=== PATIENT | female | born 1990 | race Caucasian/White ===

== ENCOUNTER 2020-02-14 04:50 | Inpatient (IN) | payer OTHER ==
[~2020-02-14] VITALS: Ht 165.1 cm; Wt 108.6 kg
[2020-02-14] MEDS ORDERED: LACTATED RINGERS 1,000 ML IV SCH (05:21)
[2020-02-14] MEDS: D5%-LACTATED RINGERS 1,000 ML IV SCH (05:21)
[2020-02-14] MEDS ORDERED: OXYTOCIN 30U/ 0.9% NaCL 500ML 500 ML IV ONE (05:21)
[2020-02-14] MEDS ORDERED: OXYTOCIN 30U/ 0.9% NaCL 500ML 500 ML IV PRN ×2 (05:21→11:23)
[2020-02-14] MEDS ORDERED: TERBUTALINE 1 MG/ML, 1ML SQ PRN (05:30)
[2020-02-14] MEDS ORDERED: ONDANSETRON 2MG/ML, 2ML IVPush PRN (05:30)
[2020-02-14] MEDS ORDERED: CALCIUM CARBONATE 500 MG TAB.CHEW PO PRN (05:30)
[2020-02-14] MEDS ORDERED: TERBUTALINE 1 MG/ML, 1ML IVPush PRN (05:30)
[2020-02-14] MEDS ORDERED: FENTANYL PF 100 MCG/2ML IV PRN (05:30)
[2020-02-14] MEDS ORDERED: METOCLOPRAMIDE 5 MG/ML, 2ML IVPush PRN (05:30)
[2020-02-14] MEDS ORDERED: SODIUM CITRATE/CITRIC ACID 30 ML UDC PO PRN (05:30)
[2020-02-14] MEDS ORDERED: NEWBORN KIT ONE (05:36)
[2020-02-14 05:44] VITALS: BP 128/75
[2020-02-14] MEDS ORDERED: MISOPROSTOL 25 MCG TABLET ONE (05:59)
[2020-02-14] MEDS ORDERED: LIDOCAINE 1%, 20ML ONE (06:17)
[2020-02-14] MEDS ORDERED: MISOPROSTOL 200 MCG TABLET ONE (06:17)
[2020-02-14] MEDS ORDERED: OXYTOCIN 30U/ 0.9% NaCL 500ML 500 ML ONE (06:18)
[2020-02-14 06:20] LABS: BASOPHILS # (AUTO) 0.04 x10^3/uL (0-0.1); BASOPHILS % (AUTO) 0 % (0-1); EOSINOPHILS # (AUTO) 0.12 x10^3/uL (0-0.4); EOSINOPHILS % (AUTO) 1 % (1-7); LYMPHOCYTES # (AUTO) 2.07 x10^3/uL (1-3.4); LYMPHOCYTES % (AUTO) 20 % (22-44); MD NO; MEAN CORPUSCULAR HGB CONC 33.4 g/dL (32.4-35.8); MEAN CORPUSCULAR VOLUME 89.7 fL (80-100); MEAN PLATELET VOLUME 7.1 fL (7.4-10.4); MONOCYTES # (AUTO) 0.58 x10^3/uL (0.2-0.8); MONOCYTES % (AUTO) 6 % (2-9); NEUTROPHILS # (AUTO) 7.55 x10^3/uL (1.8-6.8); NEUTROPHILS % (AUTO) 73 % (42-75); PLATELET COUNT 259 x10^3/uL (130-400); RED BLOOD COUNT 4.14 x10^6/uL (3.82-5.3); RED CELL DISTRIBUTION WIDTH 13.3 % (9.6-15.2)
[2020-02-14] MEDS ORDERED: MISOPROSTOL 25 MCG TABLET VG PRN (06:30)
[2020-02-14] MEDS ORDERED: FENTANYL PF 100 MCG/2ML ONE ×2 (11:11→11:32)
[2020-02-14] MEDS: FENTANYL PF 100 MCG/2ML IVPush PRN (11:22)
[2020-02-14] MEDS ORDERED: BUPIVACAINE 0.25% ONE ×2 (11:32→12:13)
[2020-02-14] MEDS ORDERED: FENTANYL/BUPIV./NS/PF 250 ML EPIDCONT SCH (11:52)
[2020-02-14] MEDS ORDERED: LACTATED RINGERS 1,000 ML IVBOLUS PRN (12:00)
[2020-02-14] MEDS ORDERED: FENTANYL PF 500 MCG, BUPIVACAINE/PF 0.5%, 30ML 62.5 ML in SODIUM CHLORIDE 0.9% 177.5 ML EPIDCONT SCH (12:00)
[2020-02-14] MEDS ORDERED: EPHEDRINE 50 MG/ML, 1ML IVPush PRN (12:00)
[2020-02-14] MEDS ORDERED: LIDOCAINE/PF 1.5%-EPI 1:200K, 30ML ONE (12:13)
[2020-02-14] MEDS ORDERED: ACETAMINOPHEN 325 MG TABLET ONE (17:53)
[2020-02-14 19:41] VITALS: BP 108/68
[2020-02-14] MEDS: LACTATED RINGERS 1,000 ML IV SCH ×2 (19:52→19:53)
[2020-02-14] MEDS ORDERED: ONDANSETRON 2MG/ML, 2ML ONE (21:07)
[2020-02-15] MEDS: D5%-LACTATED RINGERS 1,000 ML IV SCH (02:30)
[2020-02-15] MEDS ORDERED: METOCLOPRAMIDE 5 MG/ML, 2ML ONE (02:38)
[2020-02-15] MEDS ORDERED: SODIUM CITRATE/CITRIC ACID 30 ML UDC ONE (02:38)
[2020-02-15] MEDS: LACTATED RINGERS 1,000 ML IV SCH ×3 (03:52→19:52)
[2020-02-15] MEDS ORDERED: NEWBORN KIT ONE (04:53)
[2020-02-15] MEDS: FENTANYL PF 100 MCG/2ML IVPush PRN (06:22)
[2020-02-15] MEDS ORDERED: FENTANYL PF 100 MCG/2ML ONE (06:26)
[2020-02-15] MEDS: OXYTOCIN 30U/ 0.9% NaCL 500ML 500 ML IV SCH ×2 (06:53→16:53)
[2020-02-15] MEDS ORDERED: MISOPROSTOL 200 MCG TABLET PR PRN (07:00)
[2020-02-15] MEDS ORDERED: SIMETHICONE 80 MG CHEW TAB PO PRN (07:00)
[2020-02-15] MEDS ORDERED: METHYLERGONOVINE 0.2 MG/ML IM PRN (07:00)
[2020-02-15] MEDS ORDERED: OXYcodone/APAP 5/325MG TABLET ONE (08:04)
[2020-02-15] MEDS ORDERED: IBUPROFEN 800 MG TABLET ONE (08:04)
[2020-02-15] MEDS: IBUPROFEN 800 MG TABLET PO PRN ×2 (08:15→17:57)
[2020-02-15] MEDS: OXYcodone/APAP 5/325MG TABLET PO PRN ×4 (08:15→19:08)
[2020-02-15] MEDS ORDERED: OXYTOCIN 30U/ 0.9% NaCL 500ML 500 ML ONE (08:45)
[2020-02-15] MEDS: PRENATAL VIT/IRON/FA 1 EACH TABLET PO SCH (09:00)
[2020-02-15 09:15] VITALS: BP 125/80
[2020-02-15 12:15] VITALS: BP 122/78
[2020-02-15 15:14] LABS: BASOPHILS # (AUTO) 0.02 x10^3/uL (0-0.1); BASOPHILS % (AUTO) 0 % (0-1); EOSINOPHILS # (AUTO) 0.01 x10^3/uL (0-0.4); EOSINOPHILS % (AUTO) 0 % (1-7); LYMPHOCYTES # (AUTO) 1.21 x10^3/uL (1-3.4); LYMPHOCYTES % (AUTO) 7 % (22-44); MD SCAN; MEAN CORPUSCULAR HEMOGLOBIN 30.2 pg (27.0-34.8); MEAN CORPUSCULAR HGB CONC 33.9 g/dL (32.4-35.8); MEAN PLATELET VOLUME 7.1 fL (7.4-10.4); MONOCYTES # (AUTO) 0.75 x10^3/uL (0.2-0.8); MONOCYTES % (AUTO) 4 % (2-9); NEUTROPHILS % (AUTO) 89 % (42-75); PLATELET COUNT 203 x10^3/uL (130-400); RED BLOOD COUNT 3.62 x10^6/uL (3.82-5.3); RED CELL DISTRIBUTION WIDTH 13.3 % (9.6-15.2)
[2020-02-15 15:57] VITALS: BP 121/77
[2020-02-15] MEDS: DOCUSATE 100 MG CAPSULE PO PRN ×2 (17:57→19:08)
[2020-02-15 19:00] VITALS: BP 120/77
[2020-02-16] MEDS: OXYcodone/APAP 5/325MG TABLET PO PRN ×6 (00:16→22:06)
[2020-02-16 00:36] VITALS: BP 116/77
[2020-02-16] MEDS: OXYTOCIN 30U/ 0.9% NaCL 500ML 500 ML IV SCH ×3 (02:53→22:53)
[2020-02-16] MEDS: IBUPROFEN 800 MG TABLET PO PRN ×3 (03:47→19:50)
[2020-02-16] MEDS: LACTATED RINGERS 1,000 ML IV SCH ×3 (03:52→14:25)
[2020-02-16 03:58] VITALS: BP 110/78
[2020-02-16 07:30] VITALS: BP 115/74
[2020-02-16] MEDS: PRENATAL VIT/IRON/FA 1 EACH TABLET PO SCH (07:54)
[2020-02-16] MEDS: DOCUSATE 100 MG CAPSULE PO PRN (07:54)
[2020-02-16 19:45] VITALS: BP 123/82
[2020-02-16] MEDS ORDERED: MEASLES,MUMPS&RUBELLA VACC/PF 0.5 ML SQ-VACC ONE (19:45)
[2020-02-17] MEDS: OXYcodone/APAP 5/325MG TABLET PO PRN ×3 (02:22→12:18)
[2020-02-17] MEDS: LACTATED RINGERS 1,000 ML IV SCH (03:52)
[2020-02-17] MEDS: IBUPROFEN 800 MG TABLET PO PRN (05:34)
[2020-02-17 07:40] VITALS: BP 121/78
[2020-02-17] MEDS: DOCUSATE 100 MG CAPSULE PO PRN (08:05)
[2020-02-17] MEDS: PRENATAL VIT/IRON/FA 1 EACH TABLET PO SCH (08:05)
[2020-02-17] MEDS: OXYTOCIN 30U/ 0.9% NaCL 500ML 500 ML IV SCH (08:06)
[2020-02-17] MEDS ORDERED: IBUP-1222 PO (10:08)
[2020-02-17] MEDS ORDERED: OXYC-302 PO (10:09)
== END 2020-02-17 12:50 | disposition home or self-care (01) | DRG 807 ==
LOC: LDIP 04:51 → 2NW 02-15 09:03
PROVIDERS: ADMIT Obstetrics & Gynecology; ATTEND Obstetrics & Gynecology
PROC: 0KQM0ZZ Repair Perineum Muscle, Open Approach (ICD-10-PCS; principal; 2020-02-15)
PROC: 10D07Z6 Extraction of Products of Conception, Vacuum, Via Natural or Artificial Opening (ICD-10-PCS; 2020-02-15)
PROC: 10907ZC Drainage of Amniotic Fluid, Therapeutic from Products of Conception, Via Natural or Artificial Opening (ICD-10-PCS; 2020-02-15)
DX: O48.0 Post-term pregnancy (principal); Z37.0 Single live birth; Z3A.39 39 weeks gestation of pregnancy; O70.1 Second degree perineal laceration during delivery
CPT/HCPCS: 36415; J3490; J7121; S0020; 82803; 85025; 86592; 86850; 86900; G0378; J2405; J3010; J2590; J7050; J7120